=== PATIENT | male | born 1980 | race Caucasian/White ===

== ENCOUNTER 2020-09-09 19:02 | Emergency (ER) | payer MEDICAID ==
[~2020-09-09] VITALS: Ht 172.7 cm; Wt 87.0 kg
[2020-09-09] MEDS ORDERED: LORAZEPAM 2MG/ML CPJ IV ONE (19:30)
[2020-09-09 19:51] LABS: EOSINOPHILS % 0.2 % (0.0-5.0); HEMATOCRIT. 47.5 % (42.0-52.0); HEMOGLOBIN. 16.4 g/dL (14.0-18.0); LYMPHOCYTES % 20.9 % (20.0-50.0); MEAN CORPUSCULAR VOLUME 86.5 fL (80.0-94.0); MEAN PLATELET VOLUME 9.1 fl (7.4-10.4); MONOCYTES % 6.2 % (2.0-8.0); NEUTROPHILS % 71.7 % (40.0-76.0); PLATELET 247 x1000/uL (130-400); RED BLOOD CELL COUNT 5.49 mill/uL (4.7-6.1); RED CELL DISTRIBUTION WIDTH 13.7 % (11.6-14.6)
[2020-09-09 20:01] LABS: CHLORIDE 110 mEq/L (98-107)
[2020-09-09 21:13] VITALS: BP 135/80
[2020-09-09] MEDS ORDERED: POTASSIUM CHLORIDE 20MEQ TABLET SR PO NR (22:00)
== END 2020-09-09 22:49 | disposition home or self-care (01) ==
LOC: ER 19:02
DX: R07.9 Chest pain, unspecified (principal); F41.9 Anxiety disorder, unspecified; F32.9 Major depressive disorder, single episode, unspecified; F43.10 Post-traumatic stress disorder, unspecified; Z87.891 Personal history of nicotine dependence
CPT/HCPCS: 36415; 71045; 80053; 83880; 84484; 85025; 93005; 96374; 99285; J2060

== ENCOUNTER 2020-11-13 12:55 | Emergency (ER) | payer MEDICAID, OTHER ==
[~2020-11-13] VITALS: Ht 170.2 cm; Wt 109.0 kg
[2020-11-13] MEDS ORDERED: FLUORESCEIN SODIUM 1MG/STRIP BOTHEYE ONE (13:30)
[2020-11-13] MEDS ORDERED: TETRACAINE 0.5% OPHTH DROPS 4ML BOTHEYE ONE (13:30)
[2020-11-13] MEDS ORDERED: POLY10DR EACHEYE (13:32)
[2020-11-13 14:15] VITALS: BP 125/88
== END 2020-11-13 14:00 | disposition home or self-care (01) ==
LOC: ER 12:55
DX: H10.89 Other conjunctivitis (principal); F41.9 Anxiety disorder, unspecified; F32.9 Major depressive disorder, single episode, unspecified
CPT/HCPCS: 99283; C1893

== ENCOUNTER 2020-12-06 09:04 | Emergency (ER) | payer OTHER ==
[~2020-12-06] VITALS: Ht 167.6 cm; Wt 113.0 kg
[~2020-12-06 09:04] MED LIST: POLY10DR EACHEYE
[2020-12-06 09:14] VITALS: BP 118/98
[2020-12-06] MEDS ORDERED: ERYT1OIN6 EACHEYE (09:39)
[2020-12-06] MEDS ORDERED: ERYTHROMYCIN BASE 0.5% OPHTH OINT 3.5GM BOTHEYE ONE (09:45)
== END 2020-12-06 10:04 | disposition home or self-care (01) ==
LOC: ER 09:04
DX: H10.023 Other mucopurulent conjunctivitis, bilateral (principal); F41.9 Anxiety disorder, unspecified; F32.9 Major depressive disorder, single episode, unspecified
CPT/HCPCS: 99283